=== PATIENT | female | born 1950 | race Asian ===

== ENCOUNTER 2022-05-10 15:10 | Emergency (ER) | payer OTHER ==
[~2022-05-10] VITALS: Ht 160 cm; Wt 79.4 kg
[2022-05-10 15:15] VITALS: BP 144/82; TEMP 97.1
[2022-05-10 15:55] LABS: PLATELET COUNT 248 K/uL (152-353)
[2022-05-10 16:08] LABS: POTASSIUM 3.4 mmol/L (3.6-5.2)
[2022-05-10] MEDS ORDERED: METO50TA63 PO (21:06)
[2022-05-10] MEDS ORDERED: ARIPIPRAZOLE2 MG PO (21:07)
[2022-05-10] MEDS ORDERED: BUPROPION HYDR150 M1 PO (21:07)
[2022-05-10] MEDS ORDERED: VITAMIN D50000 UNIT PO (21:09)
== END 2022-05-10 17:30 | disposition still patient (30) ==
LOC: ED 15:10
PROVIDERS: Emergency Medicine
DX: F32.89 Other specified depressive episodes (principal); R62.7 Adult failure to thrive; Z11.52 Encounter for screening for COVID-19; Z13.89 Encounter for screening for other disorder
CPT/HCPCS: 80053; 81002; 85027; 87635; 93005; 99283; U0003